=== PATIENT | female | born 1960 | race Caucasian/White ===

== ENCOUNTER 2021-06-11 12:43 | Inpatient (IN) | payer MEDICAID, OTHER ==
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
[2021-06-11 14:25] LABS: Amphetamine Screen,Urine Not Detected (NotDetected); Barbiturate Screen,Urine Not Detected (NotDetected); Benzodiazepines Screen,Urine Not Detected (NotDetected); Cocaine Screen,Urine Not Detected (NotDetected); Methadone Screen, Urine Not Detected (NotDetected); Opiate Screen,Urine Not Detected (NotDetected); Oxycodone Screen, Urine Not Detected (NotDetected); Phencyclidine Screen,Urine Not Detected (NotDetected); Tricyclic Antidepressant,Urine Not Detected (NotDetected); Urn Cannabinoid Scrn Detected (NotDetected)
[2021-06-11] MEDS ORDERED: MAG HYDROX/AL HYDROX/SIMETH 30 ML CUP PO PRN (14:58)
[2021-06-11] MEDS ORDERED: MAGNESIUM HYDROXIDE 2,400 MG/10 ML CUP PO PRN (14:58)
[2021-06-11] MEDS ORDERED: ACETAMINOPHEN TAB 325 MG TAB PO PRN (14:58)
[2021-06-11] MEDS ORDERED: HALOPERIDOL LACTATE 5 MG/ML 1 ML VIAL IM PRN (14:58)
[2021-06-11] MEDS ORDERED: LORazepam 2 MG/ML INJ IM PRN (15:04)
[2021-06-11] MEDS ORDERED: LORazepam 1 MG TAB PO PRN (15:06)
--- NOTE | 2021-06-12 00:57 | P.MDCNMH ---
History of Present Illness H&P Date: 06/11/21 Chief Complaint: medical eval 61 year old female with history of fibromyalgia patient comes in petitioned for psych evaluation due to bizarre behavior , which she denies . she denies any past mental health problems , denies any current medical concerns she denies hearing voices, or suicidal ideation. she claims this whole thing is a set up , and at same time denies paranoid ideation. she denies any fever, or chills, denies chest pain or trouble breathing, denies abd pain , changes in bowel or urinary habits. Review of Systems Pertinent positives as noted in HPI. All other systems were reviewed and are negative Past Medical History Past Medical History: No Reported History History of Any Multi-Drug Resistant Organisms: None Reported Past Surgical History: No Surgical Hx Reported Past Anesthesia/Blood Transfusion Reactions: No Reported Reaction Past Psychological History: No Psychological Hx Reported Smoking Status: Current every day smoker Past Alcohol Use History: Occasional Past Drug Use History: None Reported - Past Family History family Family Medical History: No Reported History Medications and Allergies Home Medications Medication Instructions Recorded Confirmed Type No Known Home Medications 06/11/21 06/11/21 History Allergies Allergy/AdvReac Type Severity Reaction Status Date / Time No Known Allergies Allergy Verified 06/11/21 16:04 Physical Exam Vitals: Vital Signs Temp Pulse Pulse Resp BP BP Pulse Ox 06/11/21 15:48 97.6 F 84 18 172/88 06/11/21 13:59 98.6 F 88 20 132/94 98 Intake and Output 06/11/21 06/11/21 06/12/21 14:59 22:59 06:59 Other: Weight 55.338 kg 55.338 kg Constitutional: No acute distress, conversant, pleasant Eyes: Anicteric sclerae, moist conjunctiva, Pupils equal round reactive to light ENMT: NC/AT Oropharynx clear, no erythema, or exudates Neck: Supple, , no masses, or JVD No carotid bruits No thyromegaly Lungs: Clear to auscultation Clear to percussion Normal respiratory effort, no accessory muscle use Cardiovascular: Heart regular in rate and rhythm, No murmurs, gallops, or rubs No peripheral edema Abdominal: Soft Nontender, no guarding, rebound or rigidity Abdomen moving with respiration Normoactive bowel sounds No hepatomegaly, No splenomegaly No palpable mass No abdominal wall hernia noted Skin: Normal temperature, tone, texture, turgor No induration No subcutaneous nodules No rash, lesions No ulcers Extremities: No digital cyanosis No clubbing Pedal pulses intact and symmetrical Radial pulses intact and symmetrical No calf tenderness Psychiatric: Alert and oriented to person, place and time Neuro Muscles Strength 5/5 in all 4 extremities Sensation to light touch grossly present throughout Cranial nerves II-XII grossly intact No focal sensory deficits Lymphatics: no palpable cervical or supraclavicular , or inguinal lymph nodes Cranial Nerve Examination - Cranial Nerves Cranial Nerve II- Optic: Intact Cranial Nerve III- Oculomotor: Intact Cranial Nerve IV- Trochlear: Intact Cranial Nerve V- Trigeminal: Intact Cranial Nerve - Abducens: Intact Cranial Nerve VII- Facial: Intact Cranial Nerve VIII- Auditory: Intact Cranial Nerve IX- Glossopharyngeal: Intact Cranial Nerve X- Vagus: Intact Cranial Nerve XI- Accessory: Intact Cranial Nerve XII- Hypoglossal: Intact Results Labs: Abnormal Lab Results - Last 24 Hours (Table) 06/11/21 Range/Units 14:06 U Marijuana (THC) Screen Detected H (NotDetected) Assessment and Plan Assessment: paranoid ideation , bizarre behavior management per psych denies any medical history follow up labs Thank you for allowing us to participate in the care of this patient. We will follow peripherally. Do not hesitate to contact us with questions. Someone can be reached from the [facility] hospitalist group at all hours of the day at [phone].
[2021-06-12] MEDS: NICOTINE 14MG/24HR PATCH TRANSDERM SCH (08:53)
[2021-06-12 10:41] LABS: Basophils % (A) 1 %; Eosinophils % (A) 0 %; HCT 45.2 % (34.0-46.0); HGB 14.6 gm/dL (11.4-16.0); Lymphocytes # (A) 1.3 k/uL (1.0-4.8); Lymphocytes % (A) 18 %; MCH 31.5 pg (25.0-35.0); MCHC 32.4 g/dL (31.0-37.0); MCV 97.3 fL (80.0-100.0); Mean Platelet Volume 7.5; Monocytes # (A) 0.4 k/uL (0-1.0); Monocytes % (A) 5 %; Neutrophils # (A) 5.3 k/uL (1.3-7.7); Neutrophils % (A) 74 %; Platelet Count 441 k/uL (150-450); RBC 4.65 m/uL (3.80-5.40); WBC 7.2 k/uL (3.8-10.6)
[2021-06-12 11:17] LABS: ALT 28 U/L (4-34); AST 31 U/L (14-36); African American GFR (CKD) >90 (>60 ml/min/1.73 sqM); Albumin 4.8 g/dL (3.5-5.0); Alkaline Phosphatase 64 U/L (38-126); Anion Gap 9 mmol/L; Blood Urea Nitrogen 10 mg/dL (7-17); Calcium 10.4 mg/dL (8.4-10.2); Carbon Dioxide 24 mmol/L (22-30); Chloride 105 mmol/L (98-107); Glucose 116 mg/dL (74-99); Non-African American GFR(CKD) >90 (>60 ml/min/1.73 sqM); Potassium 4.5 mmol/L (3.5-5.1); Sodium 138 mmol/L (137-145); Total Bilirubin 0.8 mg/dL (0.2-1.3)
[2021-06-12 16:30] LABS: Chol/HDL Ratio 3.24 Ratio; LDL Cholesterol,Calculated 140.5 mg/dL (0.0-131.0); VLDL Calculation 19.92 mg/dL (5.00-40.00)
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
[2021-06-13] MEDS: NICOTINE 14MG/24HR PATCH TRANSDERM SCH (10:08)
--- NOTE | 2021-06-13 12:35 | P.PN ---
Progress Note - Text Progress Note Date: 06/13/21 CHIEF COMPLAINT The patient was admitted on petition due to documentation that she was acting increasingly bizarre and had very disorganized behavior. INTERVAL HISTORY The patient has been doing fair. She continued yesterday to be very focused on the idea that documentation that was the basis for her coming to the hospital is flawed, inaccurate, or totally false. She attended most groups though only stayed for a limited amount of time and did not engage much when she was in the groups. She only slept 3 hours last night by nursing documentation to 0500. Today she's been out. She wanders about. She doesn't seem to interact much with others. When I saw her today she declined coming to the office. She made a number of comments about how she can prove "my side of the story." Other than that she declined to discuss any other issues and in fact just walked away. She again stated she would not be taking any medications. MENTAL STATUS EXAM The patient had a somewhat intense manner. She also showed increased psychomotor activity and was restless. While she was distressed she also seemed to show some elevation of mood. She continues to show thoughts out of touch with reality. She made no indication of thoughts of harm though it was difficult to clearly assess this issue. She was oriented to circumstances and surroundings. ASSESSMENT/PLAN I will continue the current diagnosis and treatment plan. The patient may be showing some indications of possible bipolar marysol. At this point the primary issue is to continue the process relating to her involuntary hospitalization. We will focus on stabilization and discharge planning.
[2021-06-13] MEDS: METHYL SALICYLATE/MENTHOL CREAM 5 OZ TOPICAL PRN (18:58)
[2021-06-14] MEDS: NICOTINE 14MG/24HR PATCH TRANSDERM SCH (07:44)
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
[2021-06-15] MEDS: NICOTINE 14MG/24HR PATCH TRANSDERM SCH (08:47)
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
[2021-06-15] MEDS: QUEtiapine 50 MG TAB PO SCH (20:54)
[2021-06-15] MEDS: METHYL SALICYLATE/MENTHOL CREAM 5 OZ TOPICAL PRN (22:31)
[2021-06-15 22:50] LABS: Appearance,Urine Clear (Clear); Bilirubin,Urine Negative (Negative); Blood,Urine Negative (Negative); Color,Urine Light Yellow; Glucose,Urine (UA) Negative (Negative); Ketones,Urine Negative (Negative); Leukocyte Esterase,Urine Large (Negative); Mucus,Urine Rare /hpf; Nitrite,Urine Negative (Negative); Protein,Urine Negative (Negative); RBC,Urine <1 /hpf (0-5); Specific Gravity,Urine 1.009 (1.001-1.035); Urobilinogen,Urine <2.0 mg/dL (<2.0); WBC,Urine 10 /hpf (0-5)
[2021-06-16] MEDS: NICOTINE 14MG/24HR PATCH TRANSDERM SCH (08:05)
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
[2021-06-16] MEDS: QUEtiapine 50 MG TAB PO SCH (21:57)
[2021-06-17] MEDS: NICOTINE 14MG/24HR PATCH TRANSDERM SCH (09:09)
[2021-06-17] MEDS: METHYL SALICYLATE/MENTHOL CREAM 5 OZ TOPICAL PRN (09:37)
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
[2021-06-17] MEDS: QUEtiapine 50 MG TAB PO SCH (22:17)
[2021-06-18] MEDS: NICOTINE 14MG/24HR PATCH TRANSDERM SCH (07:57)
--- NOTE | 2021-06-18 12:18 | P.PN ---
Progress Note - Text Progress Note Date: 06/18/21 Interval History: Patient was seen wandering the hallways today. She continues to be elated and happy. She claims that she is doing "great". She appeared to be more directable today during conversation. She states that she met with her independent color technician today over video call and states that "it went fine". She claims that he did not give her any advice about the court process at this time and will be waiting for his report. She states that she has not spoken with her assistant county attorney as of yet. She continues to speak about "organic treatments" and "herbal medicine". She is denying any depression or any anxiety today. She claims that she slept fairly last night. She claims that she has been going to groups. At this time patient denies any suicidal or homical ideations, intent or plan. Patient denies any auditory, visual hallucinations and denies any paranoia or delusions. Patient claims that she does not want take any medications at this time Mental Status Exam: General Appearance: Patient appears to be stated age is alert, difficult to redirect and less argumentative today. Behavior: Patient is calmly seated without any agitated behavior. Speech: Patient's speech is fluent and nonpressured. Rambles. Expansive. Mood/Affect: Mood is "fine", affect is congruent and expansive Suicidality/Homicidality: Patient denies having any suicidal or homicidal ideation intent or plan. Perceptions: Patient denies any visual hallucinations and denies any auditory hallucinations Though content/process: Rambles, More logical today. Memory and concentration: AOX3, grossly intact for the purposes of this session Judgment and insight: Poor Assessment: Psychosis unspecified Cannabis use disorder Nicotine dependence Plan: -Patient continues to meet criteria for inpatient psychiatric admission for symptom stabilization and safety. Patient has not signed adult voluntary form and medication consent and was placed in patient's chart. Patient did not defer with her assistant county attorney. -Medications: Seroquel 50 mg daily at bedtime for mood stabilization/psychosis. pt is not taking it. -When necessary Ativan and Haldol for agitation/aggression. -NRT - nicotine patch -SW on board for discharge planning. Encouraged the patient to participate in milieu. Patient had her independent evaluation on 06/18, will now await assistant county attorney and report from evaluation to see if patient wants to continue on with jury trial or consent to the order.
[2021-06-18] MEDS: QUEtiapine 50 MG TAB PO SCH (20:36)
[2021-06-19] MEDS: NICOTINE 14MG/24HR PATCH TRANSDERM SCH (09:20)
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
[2021-06-19] MEDS: QUEtiapine 50 MG TAB PO SCH (21:46)
[2021-06-20] MEDS: NICOTINE 14MG/24HR PATCH TRANSDERM SCH (08:04)
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
[2021-06-20] MEDS: QUEtiapine 50 MG TAB PO SCH (20:08)
[2021-06-21] MEDS: NICOTINE 14MG/24HR PATCH TRANSDERM SCH (07:56)
[2021-06-21] MEDS: METHYL SALICYLATE/MENTHOL CREAM 5 OZ TOPICAL PRN (07:56)
--- NOTE | 2021-06-21 09:35 | P.PN ---
Progress Note - Text Progress Note Date: 06/21/21 Interval History: Patient was seen wandering the hallways today. She was also seen up at the [facility]'s desk waiting for someone. She was agreeable to speak to comic book writer. She continues to be tangential and have loose associations at times during conversation. She appeared to be very unhappy today and when asked why she states that she spoke with her immigration attorney who read the report and states that "I have schizophrenia apparently". She states that that it is all a plot against her to make more money from her Medicaid. She spoke about the hospital trying to "scam my insurance" and also about "paying off student debt". She was very superficial and one attending the conversation early. She continues to state that she does not believe in medications and does not want to take anything. She continues to have very poor insight and judgment. She continues to speak about "organic treatments" and "herbal medicine". She is denying any depression or any anxiety today. She claims that she slept fairly last night. At this time patient denies any suicidal or homical ideations, intent or plan. Patient denies any auditory, visual hallucinations and denies any paranoia or delusions. Patient claims that she does not want take any medications at this time Mental Status Exam: General Appearance: Patient appears to be stated age is alert, difficult to redirect and argumentative today. Behavior: Patient is calmly seated without any agitated behavior. Impulsive. Speech: Patient's speech is fluent and nonpressured. Rambles. Expansive. Mood/Affect: Mood is "just fine", affect is congruent and expansive Suicidality/Homicidality: Patient denies having any suicidal or homicidal ideation intent or plan. Perceptions: Patient denies any visual hallucinations and denies any auditory hallucinations Though content/process: Rambles, More logical today. Memory and concentration: AOX3, grossly intact for the purposes of this session Judgment and insight: Poor Assessment: Psychosis unspecified Cannabis use disorder Nicotine dependence Plan: -Patient continues to meet criteria for inpatient psychiatric admission for symptom stabilization and safety. Patient has not signed adult voluntary form and medication consent and was placed in patient's chart. Patient did not defer with her immigration attorney. -Medications: Seroquel 50 mg daily at bedtime for mood stabilization/psychosis. pt is not taking it. -When necessary Ativan and Haldol for agitation/aggression. -NRT - nicotine patch -SW on board for discharge planning. Encouraged the patient to participate in milieu. Patient had her independent evaluation on 06/18, will now await immigration attorney and report from evaluation to see if patient wants to continue on with jury trial or consent to the order.
[2021-06-21] MEDS: QUEtiapine 50 MG TAB PO SCH (21:18)
[2021-06-22] MEDS: NICOTINE 14MG/24HR PATCH TRANSDERM SCH (08:33)
--- NOTE | 2021-06-22 10:05 | P.PN ---
Progress Note - Text Progress Note Date: 06/22/21 Interval History: Patient was seen wandering the hallways today. She was also seen up at the [facility]'s desk requesting water. She was agreeable to speak to residential mortgage underwriter. She continues to be tangential and have loose associations and continues to speak about a "natural lifestyle" that she engages in and spoke "organic foods" and that she is not receiving any of this in the hospital. She states that she does not want to take any medications still and continues to want to "fight this". She was able to be redirected during conversation. She was very superficial initially during conversation. She continues to state that she does not believe in medications and believes that the hospital is making money from her. She continues to have poor insight and judgment.She is denying any depression or any anxiety today. She claims that she slept fairly last night. At this time patient denies any suicidal or homical ideations, intent or plan. Patient denies any auditory, visual hallucinations and denies any paranoia or delusions. Patient claims that she does not want take any medications at this time Mental Status Exam: General Appearance: Patient appears to be stated age is alert, difficult to redirect and less argumentative today. Behavior: Patient is calmly seated without any agitated behavior. Impulsive. Speech: Patient's speech is fluent and nonpressured. Rambles. Expansive. Mood/Affect: Mood is "fine", affect is congruent and expansive Suicidality/Homicidality: Patient denies having any suicidal or homicidal ideation intent or plan. Perceptions: Patient denies any visual hallucinations and denies any auditory hallucinations Though content/process: Rambles, More logical today. Memory and concentration: AOX3, grossly intact for the purposes of this session Judgment and insight: Poor Assessment: Psychosis unspecified Cannabis use disorder Nicotine dependence Plan: -Patient continues to meet criteria for inpatient psychiatric admission for symptom stabilization and safety. Patient has not signed adult voluntary form and medication consent and was placed in patient's chart. Patient did not defer with her patent attorney. -Medications: Seroquel 50 mg daily at bedtime for mood stabilization/psychosis. pt is not taking it. -When necessary Ativan and Haldol for agitation/aggression. -NRT - nicotine patch -SW on board for discharge planning. Encouraged the patient to participate in milieu. Patient had her independent evaluation on 06/18, will now await hearing date set for 06/23 at 945am to decide on either jury trial or consent to the order.
[2021-06-22] MEDS: METHYL SALICYLATE/MENTHOL CREAM 5 OZ TOPICAL PRN (18:41)
[2021-06-22] MEDS: QUEtiapine 50 MG TAB PO SCH (21:39)
[2021-06-23] MEDS: NICOTINE 14MG/24HR PATCH TRANSDERM SCH (08:29)
--- NOTE | 2021-06-23 09:11 | P.PN ---
Progress Note - Text Progress Note Date: 06/23/21 Interval History: Patient was seen wandering the hallways today and was initially hesitant in sp eaking with proposal writer today however agreed to speak in the office. She continues to speak about "health foods" and continues to adamantly deny that she is hallucinating or having any suicidal thoughts. She states that she slept well last night. She claimed that she did not try to go to any more groups after she was diagnosed with "schizophrenia" by the independent nib inspector. She claims that she does not know what she wants to do for court today and is still waiting to hear from her corporate associate attorney. She claims that she has "many options" of where to go when she is discharged from the hospital and has a "rich sister" that she could potentially stay with. She is denying any depression or anxiety today. Fair appetite. Patient denies any auditory, visual hallucinations and denies any paranoia or delusions. Patient claims that she does not want take any medications at this time Mental Status Exam: General Appearance: Patient appears to be stated age is alert, more directable today and less argumentative today. Behavior: Patient is calmly seated without any agitated behavior. Impulsive, improving mildly Speech: Patient's speech is fluent and nonpressured. Rambles. Expansive. Mood/Affect: Mood is "good", affect is congruent and expansive Suicidality/Homicidality: Patient denies having any suicidal or homicidal ideation intent or plan. Perceptions: Patient denies any visual hallucinations and denies any auditory hallucinations Though content/process: Rambles, More logical today. Focused on "organic" foods and lifestyle. Memory and concentration: AOX3, grossly intact for the purposes of this session Judgment and insight: Chronically poor Assessment: Psychosis unspecified Cannabis use disorder Nicotine dependence Plan: -Patient continues to meet criteria for inpatient psychiatric admission for symptom stabilization and safety. Patient has not signed adult voluntary form and medication consent and was placed in patient's chart. Patient did not defer with her corporate associate attorney. -Medications: Seroquel 50 mg daily at bedtime for mood stabilization/psychosis. pt is not taking it. -When necessary Ativan and Haldol for agitation/aggression. -NRT - nicotine patch -SW on board for discharge planning. Encouraged the patient to participate in milieu. Patient had her independent evaluation on 06/18, will now await hearing date set for today at 945am to decide on either jury trial or consent to the order. likely discharge in 1-2 days if patient is requesting a jury trial as patient can proceed with the trial as an outpatient.
[2021-06-24] MEDS: NICOTINE 14MG/24HR PATCH TRANSDERM SCH (07:25)
[2021-06-24] MEDS: QUEtiapine 50 MG TAB PO SCH ×2 (07:25→23:44)
--- NOTE | 2021-06-24 16:21 | P.PN ---
Subjective Progress Note Date: 06/24/21 Principal diagnosis: She was seen today for review of her progress. Despite the court ruling regarding her need for medication, she continued to feel neglected in her interest in Complementary Medicine. She felt acupuncture has helped her with her multiple somatic pain. She ruminated over the health benefits of Garlic and PDF dietary supplements. However, she was uanware of her mood swings, with her grandiose scheme of managing her life : organic culture. She was uncomfortable with being admitted to the psychiatric unit and still opposed Rx. Mental status: agitated at times. she speak in somewhat hyperpolic language and was knowledgable of her body aches. slight affect labile good eye contact. No marked pressrues of speech. She described her affect as highly anxious , Denied psychotic symptoms of hallucinations or deluions. No suicidal or homicidal ideation. Cognition: Oriented marginal insight Diagnosis: Atypical psychotic disorder. Rule out schizoaffective disorder. management Plan; We will optimize her seroquel and engage her with the treatment plan and her family She continued to fulfil inpatient psychiatric admission. Engage with family : ALONDRA is aware of the need for discharge planning follow up Objective - Vital Signs Vital signs: Vital Signs Temp 96.7 F L 06/24/21 06:27 Pulse 80 06/24/21 06:27 Resp 14 06/24/21 06:27 BP 153/88 06/24/21 06:27 Pulse Ox 99 06/22/21 07:23 - Labs CBC & Chem 7: 06/12/21 09:55 06/12/21 09:55
[2021-06-25] MEDS: NICOTINE 14MG/24HR PATCH TRANSDERM SCH (08:42)
[2021-06-25] MEDS: METHYL SALICYLATE/MENTHOL CREAM 5 OZ TOPICAL PRN (08:59)
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
[2021-06-25] MEDS ORDERED: OLANZapine 10 MG VIAL IM PRN (20:00)
[2021-06-25] MEDS: QUEtiapine 50 MG TAB PO SCH (22:03)
[2021-06-26] MEDS: NICOTINE 14MG/24HR PATCH TRANSDERM SCH ×2 (08:16→08:51)
[2021-06-26] MEDS: METHYL SALICYLATE/MENTHOL CREAM 5 OZ TOPICAL PRN (08:50)
[2021-06-26] MEDS: PALIPERIDONE 6 MG TAB.ER.24 PO SCH (08:51)
[2021-06-27] MEDS: PALIPERIDONE 6 MG TAB.ER.24 PO SCH (09:27)
[2021-06-27] MEDS: NICOTINE 14MG/24HR PATCH TRANSDERM SCH (09:28)
--- NOTE | 2021-06-27 19:35 | P.PN ---
Subjective Progress Note Date: 06/27/21 Principal diagnosis: progress note She was briefly reviewed yesterday over the hallway . She was better compliant with the medication and no longer complain of adverse events. She would be reinforced of her need to continue on Rx. She did not participate as much on the unit with the younger group . No side effects were noted after she was restarted on antipsychotic medication. psychosis has largely resolved. Plan reinforce Rx; Long acting may help him prevent relapse. Onganic farming and supplements can be integrated indirectly her treatment plan interms of social support network. discharge early next week Objective - Vital Signs Vital signs: Vital Signs Temp 97.8 F 06/27/21 06:40 Pulse 71 06/27/21 13:05 Resp 16 06/27/21 06:40 BP 123/73 06/27/21 13:05 Pulse Ox 100 06/27/21 06:40 Intake & Output 06/27/21 06/27/21 06/28/21 06:59 18:59 06:59 Weight 56.7 kg - Labs CBC & Chem 7: 06/12/21 09:55 06/12/21 09:55
[2021-06-27] MEDS: METHYL SALICYLATE/MENTHOL CREAM 5 OZ TOPICAL PRN (21:31)
[2021-06-28] MEDS: PALIPERIDONE 6 MG TAB.ER.24 PO SCH (09:24)
[2021-06-28] MEDS: NICOTINE 14MG/24HR PATCH TRANSDERM SCH (09:24)
[2021-06-28 14:50] VITALS: BMI 21.4
--- NOTE | 2021-06-28 18:24 | P.PN ---
Subjective Progress Note Date: 06/28/21 Principal diagnosis: Progress note She was seen today complaining of recurring headache and sinus problem with cervical and lumbar pain . She was fully enrenched with the Integrative medicine and did not agree she ever had psychosis which was agreeed upon by the community mental Health program. She was started on a low dosage of Invega before switching to LA Invega Sustenna within 5 days. NO EPS were noted. She was pleasnat, and anxious at times. . No hallcinantons but somatically preoccupied with her multiple pain. No suicidla or homicidal ideation. Cog; Oriented Lack of insight persisted. Schizo-affective disorder. Management: Rx to be monitored Objective - Vital Signs Vital signs: Vital Signs Temp 97.9 F 06/28/21 06:20 Pulse 85 06/28/21 06:20 Resp 16 06/27/21 06:40 BP 186/99 06/28/21 06:20 Pulse Ox 97 06/28/21 06:20 Intake & Output 06/27/21 06/28/21 06/28/21 18:59 06:59 18:59 Weight 56.7 kg 56.7 kg - Labs CBC & Chem 7: 06/12/21 09:55 06/12/21 09:55
[2021-06-29] MEDS: NICOTINE 14MG/24HR PATCH TRANSDERM SCH (08:48)
[2021-06-29] MEDS: PALIPERIDONE 6 MG TAB.ER.24 PO SCH (08:49)
[2021-06-29] MEDS: METHYL SALICYLATE/MENTHOL CREAM 5 OZ TOPICAL PRN (08:51)
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
[2021-06-30] MEDS: PALIPERIDONE 6 MG TAB.ER.24 PO SCH (08:45)
[2021-06-30] MEDS: NICOTINE 14MG/24HR PATCH TRANSDERM SCH (08:45)
[2021-06-30] MEDS ORDERED: lamoTRIgine 25 MG TAB PO SCH (09:00)
--- NOTE | 2021-06-30 12:09 | P.PN ---
Progress Note - Text Progress Note Date: 06/30/21 Interval History: Patient was seen sitting at the side of her bed today looking over different p apers and was directable and agreeable to speak to verse writer in the office. She claims that she feels the medication paliperidone has been "too strong" and claims that she feels "numbed out" and requested to have a decreased. She states that she did have some drooling which may have been a side effect from it. She claims that overall she is feeling "good" and is denying any other problems. She realizes that she needs to be on medications and states that "I'm on a court order now and I lost". She continues to have superficial insight into her condition and need for treatment. She was however directable to continue with medications and be switched onto long-acting injection. She states that she wants to either stay with one of her friends are her sister when she is discharged. She states that she has not heard from [facility] yet for her intake. She claims that she is sleeping very well at nighttime and has fair energy during the day. She states that she does not currently many groups be cause of the mask requirement. She is denying any depression or anxiety today. Fair appetite. Patient denies any auditory, visual hallucinations and denies any paranoia or delusions. Denies any suicidal or homicidal ideations intent or plan. Mental Status Exam: General Appearance: Patient appears to be stated age is alert, more directable today and more cooperative today. Behavior: Patient is calmly seated without any agitated behavior. Impulsive, improving mildly Speech: Patient's speech is fluent and nonpressured. Rambles Mood/Affect: Mood is "fine", affect is congruent Suicidality/Homicidality: Patient denies having any suicidal or homicidal ideation intent or plan. Perceptions: Patient denies any visual hallucinations and denies any auditory hallucinations Though content/process: Rambles, More logical today. Goal oriented. Not endorsing any delusions. Memory and concentration: AOX3, grossly intact for the purposes of this session Judgment and insight: Chronically poor, improving mildly. Assessment: Schizoaffective disorder, bipolar type Cannabis use disorder Nicotine dependence Plan: -Patient continues to meet criteria for inpatient psychiatric admission for symptom stabilization and safety. Patient has not signed adult voluntary form and medication consent and was placed in patient's chart. Patient did not defer with her casserole preparer. -Medications: Decreased paliperidone by mouth to 3 mg daily for psychosis/mood stabilization. Plan will be to give patient Invega Sustenna loading dose prior to discharge as patient is high risk for noncompliance. Discontinue Lamictal. -When necessary Ativan and Haldol for agitation/aggression. -NRT - nicotine patch -SW on board for discharge planning. Encouraged the patient to participate in milieu. Patient is now on a active court order for treatment which expires in December 2021. Likely discharge in 1-2 days, currently waiting on placement versus penitentiary and also H intake on the unit due to patient's high risk for noncompliance with follow-up.
[2021-06-30] MEDS ORDERED: PALIPERIDONE IM 234 MG/1.5 ML SYG IM STA (13:38)
[2021-07-01] MEDS: NICOTINE 14MG/24HR PATCH TRANSDERM SCH (08:19)
[2021-07-01] MEDS: PALIPERIDONE 3 MG TAB.ER.24 PO SCH (08:20)
[2021-07-01] MEDS ORDERED: PALIPERIDONE IM 234 MG/1.5 ML SYG IM ONE (10:00)
[2021-07-01] MEDS ORDERED: SALINE NASAL GEL 14.1 GM TUBE NASAL PRN (11:38)
--- NOTE | 2021-07-01 11:43 | P.PN ---
Progress Note - Text Progress Note Date: 07/01/21 Interval History: Patient was seen sitting at the side of her bed today and agreeable to speak to rfp writer in the office. She claims that she feels a bit better today however continues to believe that she does not need medications. She continues to speak about "organic foods" and states that she is tired of eating the food here in the hospital. She continues to also speak about multivitamins and her dry nasal passage. She states that she was able to sleep fairly last night however did have some anxiety before that time because she knew that she was going to receive the Invega Sustenna injection. She did not receive yesterday however will be due for having it today. He continues to demonstrate fairly poor insight into her mental health condition. She states that she wants to pancho her previous roommate and is worried about her belongings being sold or thrown out from his house. She claims that overall she is feeling "good". She states that she does not currently many groups because of the mask requirement. She is denying any depression or anxiety today. Fair appetite. Patient denies any auditory, visual hallucinations and denies any paranoia or delusions. Denies any suicidal or homicidal ideations intent or plan. Mental Status Exam: General Appearance: Patient appears to be stated age is alert, more directable today and more cooperative today. Behavior: Patient is calmly seated without any agitated behavior. Impulsive, improving mildly Speech: Patient's speech is fluent and nonpressured. Rambles Mood/Affect: Mood is "good", affect is congruent Suicidality/Homicidality: Patient denies having any suicidal or homicidal ideation intent or plan. Perceptions: Patient denies any visual hallucinations and denies any auditory hallucinations Though content/process: Rambles, More logical today. Goal oriented. Not endorsing any delusions. Memory and concentration: AOX3, grossly intact for the purposes of this session Judgment and insight: Chronically poor, improving mildly. Assessment: Schizoaffective disorder, bipolar type Cannabis use disorder Nicotine dependence Plan: -Patient continues to meet criteria for inpatient psychiatric admission for symptom stabilization and safety. Patient has not signed adult voluntary form and medication consent and was placed in patient's chart. -Medications: paliperidone by mouth 3 mg daily for psychosis/mood stabilization. Plan will be to give patient Invega Sustenna loading dose prior to discharge as patient is high risk for noncompliance. -When necessary Ativan and Haldol for agitation/aggression. -NRT - nicotine patch -SW on board for discharge planning. Encouraged the patient to participate in milieu. Patient is now on a active court order for treatment which expires in December 2021. Likely discharge in 1-2 days, currently waiting on placement versus care home and also MARTIN to be given. Patient's high risk for noncompliance with follow-up.
[2021-07-01] MEDS: MULTIVITAMINS, THERA 1 EACH TAB PO SCH (13:18)
[2021-07-02 07:15] VITALS: BP 148/90; PULSE 81; RESP 14; TEMP 97.6
[2021-07-02] MEDS: MULTIVITAMINS, THERA 1 EACH TAB PO SCH (08:56)
[2021-07-02] MEDS: NICOTINE 14MG/24HR PATCH TRANSDERM SCH (08:56)
[2021-07-02] MEDS: PALIPERIDONE 3 MG TAB.ER.24 PO SCH (08:56)
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
[2021-07-02] MEDS ORDERED: PALIPERIDONE 234 MG/1.5 ML IM ONE (13:00)
== END 2021-07-02 15:20 | disposition home or self-care (01) | DRG 885 ==
LOC: EDBD → EC 12:43 → 3MHU 14:49
PROVIDERS: ADMIT Psychiatry & Neurology Psychiatry; ATTEND Psychiatry & Neurology Psychiatry
DX: F25.0 Schizoaffective disorder, bipolar type (principal); F17.210 Nicotine dependence, cigarettes, uncomplicated; F12.10 Cannabis abuse, uncomplicated; F41.9 Anxiety disorder, unspecified; Z91.83 Wandering in diseases classified elsewhere; F45.41 Pain disorder exclusively related to psychological factors; Z20.822 Contact with and (suspected) exposure to COVID-19
CPT/HCPCS: 80053; 80061; 80306; 81001; 83036; 84443; 85025; 87635; 99285